=== PATIENT | male | born 1955 | race Caucasian/White ===

== ENCOUNTER 2018-11-11 14:34 | Emergency (ER) | payer OTHER ==
[2018-11-11] MEDS ORDERED: ASPIRIN 81 MG TABLET, CHEWABLE PO ONE (14:37)
[2018-11-11 15:07] LABS: ABSOLUTE BASOPHILS # (AUTO) 0.1 10^3/uL (0.0-0.2); ABSOLUTE EOSINOPHILS # (AUTO) 0.1 10^3/uL (0.0-0.6); ABSOLUTE LYMPHOCYTES (AUTO) 1.3 10^3/uL (0.5-4.7); ABSOLUTE MONOCYTES (AUTO) 0.6 10^3/uL (0.1-1.4); ABSOLUTE NEUT (AUTO) 4.5 10^3/uL (1.7-8.2); BASOPHILS % (AUTO) 0.9 % (0-2); EOSINOPHILS % (AUTO) 1.5 % (0-6); HEMATOCRIT 40.7 % (37.9-51.0); LYMPHOCYTES % (AUTO) 20.2 % (13-45); MEAN CORPUSCULAR HEMOGLOBIN 35.6 pg (27.0-33.4); MEAN CORPUSCULAR HGB CONC 34.4 g/dL (32.0-36.0); MEAN CORPUSCULAR VOLUME 103 fl (80-97); MONOCYTES % (AUTO) 9.5 % (3-13); PLATELET COUNT 156 10^3/uL (150-450); RED BLOOD COUNT 3.94 10^6/uL (4.35-5.55); RED CELL DISTRIBUTION WIDTH 14.5 % (11.5-14.0); SEGMENTED NEUTROPHILS % (AUTO) 67.9 % (42-78); TOTAL CELLS COUNTED % (AUTO) 100 %; WHITE BLOOD COUNT 6.6 10^3/uL (4.0-10.5)
--- NOTE | 2018-11-11 15:26 | RADIOLOGY REPORT (SQ) ---
EXAM DESCRIPTION: CHEST SINGLE VIEW COMPLETED DATE/TIME: 11/11/2018 3:00 pm REASON FOR STUDY: CHEST PAIN COMPARISON: None. NUMBER OF VIEWS: One view. TECHNIQUE: Single frontal radiographic view of the chest acquired. LIMITATIONS: None. FINDINGS: LUNGS AND PLEURA: No opacities, masses or pneumothorax. No pleural effusion. MEDIASTINUM AND HILAR STRUCTURES: No masses. Contour normal. HEART AND VASCULAR STRUCTURES: Heart normal in size. Normal vasculature. BONES: No acute findings. HARDWARE: None in the chest. OTHER: No other significant finding. IMPRESSION: NO SIGNIFICANT RADIOGRAPHIC FINDING IN THE CHEST. TECHNICAL DOCUMENTATION: JOB ID: [id number] [employer]- All Rights Reserved Reading location - IP/workstation name: [email or web address]
[2018-11-11 15:33] LABS: ALANINE AMINOTRANSFERASE 37 U/L (21-72); ALBUMIN 4.6 g/dL (3.5-5.0); ALKALINE PHOSPHATASE 64 U/L (38-126); ANION GAP 12 (5-19); ASPARTATE AMINO TRANSFERASE 49 U/L (17-59); BILIRUBIN,DIRECT 0.3 mg/dL (0.0-0.4); BILIRUBIN,TOTAL 0.4 mg/dL (0.2-1.3); BLOOD UREA NITROGEN 11 mg/dL (7-20); CARBON DIOXIDE 21 mmol/L (22-30); CHLORIDE 108 mmol/L (98-107); CREATINE KINASE 269 U/L (55-170); GLUCOSE 92 mg/dL (75-110); POTASSIUM 4.2 mmol/L (3.6-5.0); SODIUM 141.1 mmol/L (137-145); TOTAL PROTEIN 7.9 g/dL (6.3-8.2)
[2018-11-11 15:45] LABS: CREATINE KINASE MB 2.11 ng/mL (<4.55)
[2018-11-11 15:46] LABS: TROPONIN I < 0.012 ng/mL
--- NOTE | 2018-11-11 19:27 | ER Document Report ---
ED General - General Chief Complaint: Chest Pain Stated Complaint: CHEST PAIN Time Seen by Provider: 11/11/18 15:57 - HPI Notes: Patient is a 63-year-old male who presents to the emergency department for evaluation of chest pain. He describes it as a tightness, points to the substernal region. It does not radiate. He states he felt somewhat nauseated and occasionally short of breath with it. He stated it started somewhat y esterday, but became constant today. He was given nitroglycerin in route, as well as aspirin, and has been chest pain-free since then. He is currently here on vacation. He admits to drinking more alcohol than he normally does. - Related Data Allergies/Adverse Reactions: No Known Allergies Allergy (Unverified 11/11/18 15:01) Past Medical History - General Information source: Patient - Social History Smoking Status: Current Every Day Smoker Chew tobacco use (# tins/day): No Frequency of alcohol use: Daily (1-2) Drug Abuse: None Family History: Reviewed & Not Pertinent, Malignancy - Breast cancer in mother Patient has suicidal ideation: No Patient has homicidal ideation: No Renal/ Medical History: Denies: Hx Peritoneal Dialysis Malignancy Medical History: Reports Other - [place] macroglobulinemia Past Surgical History: Reports: Hx Orthopedic Surgery - back x3 Review of Systems - Review of Systems Constitutional: No symptoms reported EENT: No symptoms reported Cardiovascular: See HPI Respiratory: See HPI Gastrointestinal: See HPI Genitourinary: No symptoms reported Musculoskeletal: No symptoms reported Skin: No symptoms reported Neurological/Psychological: No symptoms reported Physical Exam - Vital signs Vitals: Pulse Ox 98 11/11/18 14:38 - Notes Notes: Vital signs reviewed, please refer to chart. Head is normocephalic, atraumatic. Pupils equal round, reactive to light. Neck is supple without meningismus. Heart is regular rate and rhythm. Lungs are clear to auscultation bilaterally. Abdomen is soft, nontender, normoactive bowel sounds throughout. Extremities without cyanosis, clubbing. Posterior calves are nontender. Peripheral pulses are equal. Skin is warm and dry. Patient is awake, alert, neurological exam is nonfocal. Course - Re-evaluation Re-evalutation: 11/11/18 19:25 She presents emergency department for evaluation of chest pain. He was chest pain-free after receiving the nitroglycerin. The patient's risk factors include smoking and age. His pain was not exertional. My strong suspicion is that this is GI related. Patient is strongly urged to quit smoking. He is told to cut down on the alcohol. His laboratory investigations were unremarkable, including negative troponins x2. The patient voiced understanding to the fact that I cannot rule out coronary artery disease. He is encouraged to follow-up with his primary care provider when he gets back home to [place]. He again wished understanding was discharged. - Vital Signs Vital signs: Temp Pulse Resp BP Pulse Ox 97.5 F 18 98 11/11/18 15:41 11/11/18 19:00 11/11/18 16:00 - Laboratory Result Diagrams: 11/11/18 13:55 11/11/18 13:55 Laboratory results interpreted by me: 11/11/18 11/11/18 13:55 13:55 RBC 3.94 L MCV 103 H MCH 35.6 H RDW 14.5 H Chloride 108 H Carbon Dioxide 21 L Creatine Kinase 269 H - Diagnostic Test Radiology reviewed: Reports reviewed Radiology results interpreted by me: 11/11/18 19:26 Chest X-Ray 11/11/18 14:38 IMPRESSION: NO SIGNIFICANT RADIOGRAPHIC FINDING IN THE CHEST. - EKG Interpretation by Me Additional EKG results interpreted by me: 11/11/18 19:26 Sinus mechanism with a rate of 82 bpm. [address]. Nons[address] changes, but no acute changes concerning for ischemia or infarction. No old studies available for comparison. Discharge - Discharge Clinical Impression: Chest pain Condition: Stable Disposition: HOME, SELF-CARE Instructions: Chest Pain of Unclear Cause ([facility]) Additional Instructions: Decrease alcohol intake, try to quit smoking. You should consider taking a medication such as Zantac for your symptoms. You should have further evaluation of your chest pain once you return home. If your chest pain worsens, or you develop new or concerning symptoms of any sort, return immediately to the e mergency department for reevaluation. Forms: Smoking Cessation Education
--- NOTE | 2018-11-12 00:38 | EKG REPORT ---
SEVERITY:- ABNORMAL ECG - SINUS RHYTHM RIGHT AXIS DEVIATION PROBABLE INFERIOR INFARCT, AGE INDETERMINATE : Confirmed by: Arnaud Kiran 12-Nov-2018 00:37:49
== END 2018-11-11 19:37 | disposition home or self-care (01) ==
LOC: ER 14:34
DX: R07.9 Chest pain, unspecified (principal); F17.200 Nicotine dependence, unspecified, uncomplicated
CPT/HCPCS: 36415; 71045; 80053; 82550; 82553; 84484; 85025; 93005; 93010; 99285